=== PATIENT | female | born 1960 | race Caucasian/White ===

== ENCOUNTER 2017-08-08 10:53 | Outpatient (CLI) | payer MEDICAID | END 2017-08-08 23:59 | disposition home or self-care (01) | LOC: VAS 10:53 | PROVIDERS: ATTEND Nurse Practitioner Family | DX: M79.81 Nontraumatic hematoma of soft tissue (principal); M79.89 Other specified soft tissue disorders; M79.605 Pain in left leg; F17.210 Nicotine dependence, cigarettes, uncomplicated | CPT/HCPCS: 93970 ==